=== PATIENT | male | born 1995 | race African-American/Black ===

== ENCOUNTER → 2016-07-16 | Outpatient (REF) | payer OTHER ==
[2016-07-16 12:53] LABS: FREE T4 0.72 NG/DL (0.76-1.46)
[2016-07-21 00:06] LABS: TESTOSTERONE %FREE+WEAKLY BOUN 41.4 % (3.0-18.0); TESTOSTERONE FREE+WEAKLY BOUND 133.7 ng/dL (0.0-9.5)
== END ==
LOC: EDSEX 11:30 → M LABDRAW1 11:30
PROVIDERS: ATTEND Physician Assistant Medical
DX: R94.6 Abnormal results of thyroid function studies (principal); E29.1 Testicular hypofunction

== ENCOUNTER → 2016-07-29 | Outpatient (REF) | payer OTHER ==
[2016-07-29 17:05] LABS: FREE T4 0.76 NG/DL (0.76-1.46)
== END ==
LOC: M LABDRAW1 15:32
PROVIDERS: ATTEND Physician Assistant Medical
DX: E29.1 Testicular hypofunction (principal); R94.6 Abnormal results of thyroid function studies; R19.7 Diarrhea, unspecified
CPT/HCPCS: 36415; 84439; 84443; 86256; G0103

== ENCOUNTER → 2016-08-26 | Outpatient (REF) | payer OTHER | LOC: M LABDRAW1 15:27 | PROVIDERS: ATTEND Physician Assistant Medical | DX: R94.6 Abnormal results of thyroid function studies (principal) ==